=== PATIENT | male | born 1970 | race Caucasian/White ===

== ENCOUNTER 2020-02-14 09:07 | Inpatient (IN) | payer OTHER ==
[2020-02-14] VITALS (8 sets, daily range): BP systolic 101–141; BP diastolic 46–77; PULSE 70–91; TEMP 98.1–98.7
[~2020-02-14] VITALS: Ht 175.3 cm; Wt 84.1 kg
[~2020-02-14 09:07] MED LIST changes: -PROZAC 20MG20 MG PO; -REMERON 15M15 MG/TA1 PO; -ROXICODONE 55 MG/TAB PO; -XARELTO20 MG PO; -ZYPREXA20 MG PO
[2020-02-14] MEDS ORDERED: ROXICODONE 55 MG/TAB PO (10:20)
[2020-02-14] MEDS ORDERED: ZYPREXA20 MG PO (10:21)
[2020-02-14] MEDS ORDERED: PROZAC 20MG20 MG PO (10:22)
[2020-02-14] MEDS ORDERED: REMERON 15M15 MG/TA1 PO (10:23)
[2020-02-14] MEDS ORDERED: XARELTO20 MG PO (10:25)
[2020-02-14 12:18] LABS: SYNOVIAL FLUID APPEARANCE CLOUDY; SYNOVIAL FLUID COLOR YELLOW
[2020-02-14 12:20] LABS: SYNOVIAL FL. MONONUCLEAR 5.6 % (0-75); SYNOVIAL FLUID RBC 8000 /mm3 (0-0); SYNOVIAL FLUID WBC 51242 /mm3 (200-600)
[2020-02-14 15:21] LABS: CALCIUM 8.5 mg/dL (8.4-10.2); CREATININE, serum 0.7 (0.66-1.25); POTASSIUM 4.3 mmol/L (3.4-5.0)
[2020-02-14 15:38] LABS: C-REACTIVE PROTEIN 14.8 mg/dL (0.0-0.9)
[2020-02-14 16:45] LABS: BASO % 0.3 % (0.0-2.0); EOS % 0.5 % (0-4.0); GRAN # 6.9 (1.4-6.5); GRAN % 86.8 % (42.2-75.2); HEMOGLOBIN 11.8 g/dl (13.5-18.0); LYMPH # 0.8 (1.2-3.4); LYMPH % 9.6 % (20.0-51.0); MEAN CELL VOLUME 96 fl (80.0-100.0); MEAN CORPUSCULAR HEMOGLOBIN 31 pg (27.0-31.0); MEAN CORPUSCULAR HGB CONC 33 g/dl (33.0-37.0); MEAN PLATELET VOLUME 9.3 fl (7.4-10.4); MONO # 0.2 (0.1-0.6); MONO % 2.3 % (1.7-9.3); PLATELET COUNT 212 K/mm3 (130-400); RED BLOOD COUNT 3.77 M/mm3 (4.20-5.60); REDCELL DISTRIBUTION WIDTH-CV 11.9 % (11.5-14.5)
--- NOTE | 2020-02-14 17:00 | NUR ---
PATIENT ARRIVED TO ROOM 347 VIA BED FROM PACU. PATIENT IS SEDATED BUT AROUSES EASILY TO NAME. POST-OP VSS. LEFT KNEE GABRIELA WRAP DRESSING IS CD&I. POSITIVE PEDAL PULSES EQUAL BILATERALLY. CAP REFILL <3 SECONDS. CMS INTACT. LEFT KNEE HEMOVAC DRAIN IN PLACE WITH BLOODY DRESSING PRESENT IN DRAIN. IV FLUIDS RUNNING TO RIGHT WRIST IV. SCD'S TO BLE. LLE ELEVATED ON PILLOWS. CALL LIGHT IN REACH. PATIENT DENIES ANY NEEDS AT THIS TIME.
[2020-02-14 17:06] LABS: HEMATOCRIT 36.1 % (42.0-52.0)
[2020-02-14 17:07] LABS: ERYTHROCYTE SEDIMENTATION RATE 52 mm/hr (0-15)
--- NOTE | 2020-02-14 19:05 | NUR ---
PATIENT GIVEN PRN PO PAIN PILL FOR PAIN RATED A 6/10 ON A 0-10 SCALE. POST-OP VSS. PATIENT TOLERATING CLEAR LIQUIDS WITHOUT DIFFICULTIES. DINNER TRAY ORDERED. CALL LIGHT WITHIN REACH. PATIENT DENIES ANY OTHER NEEDS AT THIS TIME. BEDSIDE REPORT GIVEN TO DOMINIQUE RUBIO.
--- NOTE | 2020-02-14 20:30 | NUR ---
Resting in bed. Assessment complete. Lungs clear. Heart sounds normal. Bowels active x4. Pulses present throughout. No edema noted. IV right hand without complications. Denies pain. Denies needs at this time. Call light in reach. Left knee dressing CDI. Malvin wrap present. Hemovac to bulb suction. Will monitor.
[2020-02-15] VITALS (7 sets, daily range): BP systolic 107–140; BP diastolic 53–78; PULSE 66–86; TEMP 97.6–98.5
--- NOTE | 2020-02-15 00:31 | NUR ---
Reported 7/10 left knee abd back pain. Provided with PRN yin. Denies other needs. Call light in reach.
--- NOTE | 2020-02-15 01:48 | NUR ---
Patient having anxiety attack. Pulled apart hemovac-back together to suction. Takes kratom at home for anxiety. Spoke with MICHELLE Golden. Give xanax 0.5mg now.
--- NOTE | 2020-02-15 06:25 | NUR ---
Patient required PRN norco for pain control. Patient also required xanax for an anxiety attack during night. Hemovac drain to bulb suction with bloody output during night. Resting in bed this AM. Call light in reach.
--- NOTE | 2020-02-15 07:04 | NUR ---
Report given to DOMINIQUE Salazar
--- NOTE | 2020-02-15 08:00 | NUR ---
Patient in bed resting. Alert and oriented x 3. Assessment complete. LLE with acewrap and hemovac in place. Having bloody drainage from hemovac. Fluids infusing per orders. Denies needs at this time.
[2020-02-15 09:14] LABS: CALCIUM 8.4 mg/dL (8.4-10.2); CREATININE, serum 0.82 (0.66-1.25)
--- NOTE | 2020-02-15 10:30 | NUR ---
Patient having picc line placed. Patient having increased anxiety and pain, morpine given. Remained in patient room while picc line placed.
--- NOTE | 2020-02-15 11:43 | NUR ---
YUNI met with the patient to discuss discharge plan. The patient lives in [place] with his , Clara (ph#[phone]), and daughter. He reports independence with ADLs and has crutches. The patient's primary care provider is Ms. James at the [facility] and he receives his medications from [facility]. He reports no difficultes obtaining his meds. The patient does not have a DPOA-HC, but he was interested in obtaining a form. YUNI provided. The patient plans to return home with his family upon discharge. The patient has an infection in his left knee and may need IV antibiotics. YUNI discussed outpatient IV antibiotics at [facility]. The patient states that he would be interested in this, if he needs the IV antibiotics. SW to continue to follow.
--- NOTE | 2020-02-15 15:00 | NUR ---
Contacted Dr. Le for consult
--- NOTE | 2020-02-15 16:14 | NUR ---
Vancomycin Initial Dosing Pharmacy Note Ordering provider: Bulmaro Le MD Indication/duration: Septic Knee Infection LABS: eCrCl > 100 mL/min Recommendation: Loading dose: 2 1-gram doses given post-op Maintenance dose: 1.5 grams every 12 hours Trough goal: 15-20 ug/mL Pharmacy will continue to follow.
--- NOTE | 2020-02-15 19:16 | NUR ---
Patient has done well throughout the day. Has requested pain meds for LLE pain, medications given per orders. Hemovac maintained to LLE with bloody drainage present. Acewrap to LLE remains CDI. Denies needs at this time. PICC line to ANNE without complications. Will report off to curriculum supervisor.
--- NOTE | 2020-02-15 20:05 | NUR ---
Resting in bed. Assessment complete. Lungs clear. Heart sounds normal. Bowels active x4. Pulses present throughout. No edema noted. PICC to right upper flushed without complications. Reports 7 left knee pain. [place] due at 2100 will provide to patient. Left knee dressing CDI. Hemovac drain to compression suction. Denies other needs at this time. Will continue to monitor.
--- NOTE | 2020-02-15 21:00 | NUR ---
Patient given PRN norco at this time. Call light in reach.
--- NOTE | 2020-02-15 23:57 | NUR ---
Resting in bed. Reports 3/10 pain, able to rest. Denies needs at this time. Call light in reach.
--- NOTE | 2020-02-16 02:02 | NUR ---
Reported 7/10 left knee pain. Provided with PRN tamico at this time.
[2020-02-16 03:26] VITALS: BP 128/76; PULSE 70; TEMP 98.3
--- NOTE | 2020-02-16 03:36 | NUR ---
Resting in bed. Denies needs. Call light in reach.
--- NOTE | 2020-02-16 06:34 | NUR ---
Patient required norco for pain control during night. Otherwise uneventful night. Resting in bed this AM. Call light in reach.
--- NOTE | 2020-02-16 07:04 | NUR ---
Report given to DOMINIQUE Hernandez
[2020-02-16 08:00] VITALS: BP 126/62; PULSE 71; TEMP 98.4
--- NOTE | 2020-02-16 09:00 | NUR ---
PATIENT SHIFT ASSESSMENT COMPLETED. PATIENT GIVEN PRN PO PAIN MEDICATION PRIOR TO DISCONTINUING THE PATIENTS HEMOVAC DRAIN. LEFT KNEE GABRIELA WRAP DRESSING REMOVED. HEMOVAC DRAIN REMOVED PER ORDERS. 4X4 GAUZE, ABD PAD, SOFT ROLL AND GABRIELA WRAP DRESSING APPLIED OVER LEFT KNEE. JORDAN HOSE APPLIED TO BLE. CALL LIGHT IN REACH. NO OTHER NEEDS AT THIS TIME.
--- NOTE | 2020-02-16 09:10 | NUR ---
PICC intact right upper arm with dried reddish drainage noted on disk. Sterile dressing change done with insertion site cleansed with chloraprep x 1, chlorhexidine impregnated disk applied, skin prep, stat lock, and tegaderm applied. no signs or symptoms of IV complications noted. no concerns voiced. re-wrapped with an bernardo to protect catheter.
[2020-02-16 11:20] VITALS: BP 138/77; PULSE 74; TEMP 97.9
--- NOTE | 2020-02-16 13:12 | NUR ---
YUNI contacted Brittany at [facility] to notify that the patient is wanting to get his IV antibiotics there, if IV antibiotics are recommeded. His final cultures are pending. Brittany reports that she will talk to her team and look into this, to make they they can do this and about insurance auth.
--- NOTE | 2020-02-16 13:23 | NUR ---
CALLED AND NOTIFIED OF FINAL CULTURE RESULTS. ORTHO WANTING IV ANTIBIOTIC RECOMMENDATIONS. PATIENT TO DISCHARGE TODAY WITH OUTPATIENT ANTIBIOTICS.
[2020-02-16 16:00] VITALS: BP 132/81; PULSE 72; TEMP 98.4
--- NOTE | 2020-02-16 16:43 | NUR ---
ID is recommending IV Vanc, twice a day for six weeks. YUNI met with the patient to update. The patient would still like to pursue with getting the IV antibiotics at [facility]. The patient's insurance is listed as [employer]. YUNI contacted Wayne, RN, at the [facility]. Wayne reports that they would need the patient's records and an order for the IV antibiotics. He would then have to present this to the patient's provider and she would have to approve this at [facility]. Wayne states that this would not get approved by today. YUNI then contacted and updated the patient's , Clara. Clara reports that the patient has Medicare Part A & B. She provided YUNI with the patient's Medicare ID#. Clara reports that they would prefer to bill the patient's Medicare for the IV antibiotics. YUNI notified Financial Counselor, Vanessa. Vanessa confirmed the patient's Medicare. YUNI contacted and updated Brittany at [facility]. Brittany reports that they would be able to accept the patient under his Medicare. YUNI then contacted and faxed the patient's information to the nurses station at [facility]. The RN reports that the patient will need to arrive there tomorrow, 02/16, at 0800. His second dose will be at 1999. YUNI contacted and updated the patient's . The patient's is agreeable to the plan. YUNI updated the patient's RN. The patient's RN attempted to notify the patient's attending for d/c orders. The patient's attending is at his clinic and with another patient. [facility] will just need the patient's d/c orders once in. YUNI informed the patient's RN of this and provided her with the fax cover sheet to [facility]. The patient's RN plans to fax the patient's d/c orders to [facility] once in. No additional needs at this time.
[2020-02-16] MEDS ORDERED: VANCO 1.51.5 GM/250 IV (17:06)
--- NOTE | 2020-02-16 19:13 | NUR ---
THIS NURSE WROTE A VERBAL ORDER SCRIPT FOR THE PATIENTS OUTPATIENT IV ANTIBIOTICS PER AND FAXED ORDERS TO [facility]. REPORT GIVEN TO DOMINIQUE RUBIO.
[2020-02-16 19:45] VITALS: BP 127/67; PULSE 81; TEMP 98.3
--- NOTE | 2020-02-16 21:00 | NUR ---
Discharge instructions reviewed with patient. PICC discharge instructions reviewed. Patient given take home norco pack. Reina outpatient antibiotics infusion time reviewed. Denies other questions at this time. Taken via wheelchair to ED entrance.
--- NOTE | 2020-02-17 08:55 | NUR ---
YUNI faxed the patient's discharge orders to [facility], 02/16.
== END 2020-02-16 21:00 | disposition home or self-care (01) | DRG 857 ==
LOC: SDCO 09:07 → SURG 10:00 → SDCO 14:09 → SURG 14:10
PROVIDERS: Nurse Anesthetist, Certified Registered; ADMIT Orthopaedic Surgery
PROC: 0SBD4ZZ Excision of Left Knee Joint, Percutaneous Endoscopic Approach (ICD-10-PCS; principal; 2020-02-14 14:00)
DX: T81.40XA Infection following a procedure, unspecified, initial encounter (principal); M00.062 Staphylococcal arthritis, left knee; I10 Essential (primary) hypertension; Y83.8 Other surgical procedures as the cause of abnormal reaction of the patient, or of later complication, without mention of misadventure at the time of the procedure
CPT/HCPCS: OP; A9284; C1751; C1892; G0378; J0690; J1170; J1885; J2250; J2270; J2405; J2704; J3010; J3370; J7042; J7050; J7120

== ENCOUNTER → 2020-02-14 | Outpatient (REF) ==
[~2020-02-14] MED LIST: ATIVAN 1MG T1 MG/TAB PO; BUSPAR5 MG PO; CYPROHEPTADINE4 MG PO; FLEXERIL 1010 MG/TAB PO; LAMICTAL CD25 MG PO; LOPID 600M600 MG/TAB PO; PERCOCET 325 MG1 TA2 PO; PRAVACHOL 20MG20 MG PO; PROZAC 20MG20 MG PO; REMERON 15M15 MG/TA1 PO; ROXICODONE 55 MG/TAB PO; XARELTO20 MG PO; ZYPREXA20 MG PO
[2020-02-14 16:16] LABS: SYNOVIAL FL. MONONUCLEAR 5.3 % (0-75); SYNOVIAL FLUID RBC 3000 /mm3 (0-0); SYNOVIAL FLUID WBC 37370 /mm3 (200-600)
[2020-02-14 16:18] LABS: SYNOVIAL FLUID APPEARANCE CLEAR; SYNOVIAL FLUID COLOR COLORLESS
== END ==
LOC: ZLAB.WCH 16:08
PROVIDERS: Family Medicine
DX: Z01.89 Encounter for other specified special examinations (principal)

== ENCOUNTER → 2020-10-17 | Outpatient (CLI) | payer OTHER ==
[~2020-10-17] MED LIST changes: +PROZAC 20MG20 MG PO; +REMERON 15M15 MG/TA1 PO; +ROXICODONE 55 MG/TAB PO; +VANCO 1.51.5 GM/250 IV; +XARELTO20 MG PO; +ZYPREXA20 MG PO
== END ==
LOC: COL.RAD 13:14
DX: M89.352 Hypertrophy of bone, left femur (principal)